=== PATIENT | female | born 1970 | race Caucasian/White ===

== ENCOUNTER 2017-05-31 10:54 | Inpatient (IN) | payer BC ==
[2017-05-31] MEDS ORDERED: Lactated Ringers 1,000 ML IV ONE ×2 (11:34→12:56)
[2017-05-31] MEDS ORDERED: Sodium Chloride 0.9% 10 ML Syringe FLUSH PRN (11:34)
[2017-05-31] MEDS ORDERED: diphenhydrAMINE 50 MG/ML SDV IVPUSH ONE (11:35)
[2017-05-31] MEDS ORDERED: methylPREDNISolone Sodium Succinate 125 MG/2 ML SDV IVPUSH ONE (11:35)
--- NOTE | 2017-05-31 11:52 | EDM.PDOC ---
ED HPI GENERAL MEDICAL PROBLEM - General Chief Complaint: Fever Stated Complaint: FEVER,RASH,BODY ACHES VOMITING Time Seen by Provider: 05/31/17 11:15 Source of Information: Reports: Patient History Limitations: Reports: No Limitations - History of Present Illness INITIAL COMMENTS - FREE TEXT/NARRATIVE: 46-year-old female presents for evaluation and treatment of fevers, rash, nausea , vomiting and body aches. Patient reports one week ago she appreciated abscess to her left shoulder blade. She presented to the walk-in clinic and was referred to surgery. She was able to see Dr. Garrett, [facility], Saturday. Reports that a culture was obtained and she was started on antibiotics. No I&D was performed. Patient states that she was started on Bactrim. She states that afternoon she developed fevers and bodyaches. Reports her temperature has been highest at 102.8. She reports last night she developed nausea and vomiting, right after taking the antibiotic. She is also been experiencing a decreased appetite, dizziness, feeling "foggy", fevers, chills and a "little bit of a cough ". She denies any sore throat, ear pain, abdominal pain, dysuria or any diarrhea. She states that last night she appreciated some redness to her bilateral thighs. When she woke this morning she had erythema and pruritus to her entire body. She states that she had a little bit of a headache the other day but nothing major. Last dose of antibiotic was last night. She took some Tylenol PM last night to help her sleep. No recent travel. Generalized Pain Score (Numeric/FACES): 5 - Related Data Allergies Allergy/AdvReac Type Severity Reaction Status Date / Time latex Allergy Rash Verified 05/31/17 15:38 Sulfa (Sulfonamide Allergy Rash Verified 05/31/17 11:03 Antibiotics) Home Meds: Home Meds Cholecalciferol (Vitamin D3) [Vitamin D3] 2,000 units PO DAILY 05/31/17 [History ] Multivitamin [Multivitamins] 1 each PO DAILY 05/31/17 [History] Sulfamethoxazole/Trimethoprim [Bactrim Ds Tablet] 1 tab PO BID 05/31/17 [History ] Past Medical History - Past Health History Medical/Surgical History: Denies Medical/Surgical History ED ROS GENERAL - Review of Systems Review Of Systems: See Below Constitutional: Reports: Fever, Chills, Malaise, Decreased Appetite HEENT: Denies: Ear Pain, Throat Pain Respiratory: Reports: Cough. Denies: Sputum GI/Abdominal: Reports: Nausea, Vomiting. Denies: Abdominal Pain, Diarrhea : Denies: Dysuria Skin: Reports: Pruritis, Erythema, Lumps Neurological: Reports: Headache ED EXAM, SEPSIS - Physical Exam Exam: See Below Exam Limited By: No Limitations General Appearance: Alert, WD/WN, No Apparent Distress, Obese Eye Exam: Bilateral Eye: Normal Inspection Ears: Normal External Exam Nose: Normal Inspection Throat/Mouth: Normal Inspection, Normal Lips, Normal Voice, No Airway Compromise Neck: Normal Inspection Respiratory/Chest: No Respiratory Distress, Lungs Clear, Normal Breath Sounds Cardiovascular: Normal Peripheral Pulses, Tachycardia, Systolic Murmur (grade 2 systolic heart murmur) Peripheral Pulses: 2+: Radial (L), Radial (R), Posterior Tibial (L), Posterior Tibial (R) GI/Abdominal Exam: Normal Bowel Sounds, Soft, Non-Tender, No Organomegaly Neurological: Alert, Oriented, Normal Cognition Psychiatric: Normal Affect, Normal Mood Skin: Erythema (bilteral legs, arms, trunk and head; no blistering appreciated) , Increased Warmth, Wound/Incision Course - Vital Signs Last Recorded V/S: Last Vital Signs Temp 36.9 C 05/31/17 15:07 Pulse 90 05/31/17 15:07 Resp 16 05/31/17 15:07 BP 93/58 L 05/31/17 15:07 Pulse Ox 92 L 05/31/17 15:07 - Orders/Labs/Meds Orders: Active Orders 24 hr Category Date Time Status Patient Status [ADT] Routine ADT 05/31/17 14:41 Ordered Cardiac Monitoring [RC] . DIRECTED Care 05/31/17 11:35 Active Peripheral IV Care [RC] . DIRECTED Care 05/31/17 11:34 Active CULTURE BLOOD [BC] Stat Lab 05/31/17 11:52 Received CULTURE BLOOD [BC] Stat Lab 05/31/17 12:25 Received CULTURE STREP A CONFIRMATION [RM] Stat Lab 05/31/17 11:53 Results STREP SCRN A RAPID W CULT CONF [RM] Stat Lab 05/31/17 11:53 Results Sodium Chloride 0.9% [Saline Flush] Med 05/31/17 11:34 Active 10 ml FLUSH ASDIRECTED PRN Blood Culture x2 Reflex Set [OM.PC] Stat Oth 05/31/17 11:29 Ordered Peripheral IV Insertion Adult [OM.PC] Routine Oth 05/31/17 11:34 Ordered Medication Orders Sodium Chloride (Saline Flush) 10 ml FLUSH ASDIRECTED PRN PRN Reason: Keep Vein Open Last Admin: 05/31/17 12:06 Dose: 10 ml Labs: Laboratory Tests 05/31/17 05/31/17 05/31/17 Range/Units 10:05 10:05 10:05 WBC 3.79 L (3.98-10.04) K/mm3 RBC 4.83 (3.98-5.22) M/mm3 Hgb 12.3 (11.2-15.7) gm/L Hct 36.9 (34.1-44.9) % MCV 76.4 L (79.4-94.8) fl MCH 25.5 L (25.6-32.2) pg MCHC 33.3 (32.2-35.5) g/dl RDW Std Deviation 40.8 (36.4-46.3) fL Plt Count 189 (182-369) K/mm3 MPV 10.8 (9.4-12.3) fl Neutrophils % (Manual) 38 L (40-60) % Band Neutrophils % 20 H (0-10) % Lymphocytes % (Manual) 30 (20-40) % Atypical Lymphs % 0 % Monocytes % (Manual) 6 (2-10) % Eosinophils % (Manual) 6 H (0.7-5.8) % Basophils % (Manual) 0 L (0.1-1.2) Platelet Estimate Adequate RBC Morph Comment Not Reportable Sodium 130 L (136-145) mEq/L Potassium 3.8 (3.5-5.1) mEq/L Chloride 95 L (98-107) mEq/L Carbon Dioxide 21 (21-32) mEq/L Anion Gap 17.8 H (5-15) BUN 11 (7-18) mg/dL Creatinine 1.2 H (0.55-1.02) mg/dL Est Cr Clr Drug Dosing 51.66 mL/min Estimated GFR (MDRD) 49 (>60) mL/min BUN/Creatinine Ratio 9.2 L (14-18) Glucose 129 H (74-106) mg/dL Lactic Acid (0.4-2.0) mmol/L Calcium 8.2 L (8.5-10.1) mg/dL Total Bilirubin 0.2 (0.2-1.0) mg/dL AST 157 H (15-37) U/L ALT 106 H (14-59) U/L Alkaline Phosphatase 84 (46-116) U/L C-Reactive Protein 3.8 H* (<1.0) mg/dL Total Protein 7.2 (6.4-8.2) g/dl Albumin 3.2 L (3.4-5.0) g/dl Globulin 4.0 gm/dL Albumin/Globulin Ratio 0.8 L (1-2) Urine Color (Yellow) Urine Appearance (Clear) Urine pH (5.0-8.0) Ur Specific [place] (1.005-1.030) Urine Protein (Negative) Urine Glucose (UA) (Negative) Urine Ketones (Negative) Urine Occult Blood (Negative) Urine Nitrite (Negative) Urine Bilirubin (Negative) Urine Urobilinogen (0.2-1.0) Ur Leukocyte Esterase (Negative) Urine RBC (0-5) /hpf Urine WBC (0-5) /hpf Ur Epithelial Cells (0-5) /hpf Urine Bacteria (FEW) /hpf Urine Mucus (FEW) /hpf Urine Opiates Screen (NEGATIVE) Ur Buprenorphine Scrn (NEGATIVE) Ur Oxycodone Screen (NEGATIVE) Urine Methadone Screen (NEGATIVE) Ur Propoxyphene Screen (NEGATIVE) Ur Barbiturates Screen (NEGATIVE) Ur Tricyclics Screen (NEGATIVE) Ur Phencyclidine Scrn (NEGATIVE) Ur Amphetamine Screen (NEGATIVE) U Methamphetamines Scrn (NEGATIVE) U Benzodiazepines Scrn (NEGATIVE) U Cocaine Metab Screen (NEGATIVE) U Marijuana (THC) Screen (NEGATIVE) Ethyl Alcohol 0.00 (0.00) gm% 05/31/17 05/31/17 05/31/17 Range/Units 11:52 13:05 13:05 WBC (3.98-10.04) K/mm3 RBC (3.98-5.22) M/mm3 Hgb (11.2-15.7) gm/L Hct (34.1-44.9) % MCV (79.4-94.8) fl MCH (25.6-32.2) pg MCHC (32.2-35.5) g/dl RDW Std Deviation (36.4-46.3) fL Plt Count (182-369) K/mm3 MPV (9.4-12.3) fl Neutrophils % (Manual) (40-60) % Band Neutrophils % (0-10) % Lymphocytes % (Manual) (20-40) % Atypical Lymphs % % Monocytes % (Manual) (2-10) % Eosinophils % (Manual) (0.7-5.8) % Basophils % (Manual) (0.1-1.2) Platelet Estimate RBC Morph Comment Sodium (136-145) mEq/L Potassium (3.5-5.1) mEq/L Chloride (98-107) mEq/L Carbon Dioxide (21-32) mEq/L Anion Gap (5-15) BUN (7-18) mg/dL Creatinine (0.55-1.02) mg/dL Est Cr Clr Drug Dosing mL/min Estimated GFR (MDRD) (>60) mL/min BUN/Creatinine Ratio (14-18) Glucose (74-106) mg/dL Lactic Acid 1.5 (0.4-2.0) mmol/L Calcium (8.5-10.1) mg/dL Total Bilirubin (0.2-1.0) mg/dL AST (15-37) U/L ALT (14-59) U/L Alkaline Phosphatase (46-116) U/L C-Reactive Protein (<1.0) mg/dL Total Protein (6.4-8.2) g/dl Albumin (3.4-5.0) g/dl Globulin gm/dL Albumin/Globulin Ratio (1-2) Urine Color [place] H (Yellow) Urine Appearance Cloudy H (Clear) Urine pH 5.5 (5.0-8.0) Ur Specific [place] 1.020 (1.005-1.030) Urine Protein 2+ H (Negative) Urine Glucose (UA) Negative (Negative) Urine Ketones Trace H (Negative) Urine Occult Blood 3+ H (Negative) Urine Nitrite Negative (Negative) Urine Bilirubin Negative (Negative) Urine Urobilinogen 0.2 (0.2-1.0) Ur Leukocyte Esterase Negative (Negative) Urine RBC 40-50 H (0-5) /hpf Urine WBC 0-5 (0-5) /hpf Ur Epithelial Cells 0-5 (0-5) /hpf Urine Bacteria Few (FEW) /hpf Urine Mucus Not seen (FEW) /hpf Urine Opiates Screen Negative (NEGATIVE) Ur Buprenorphine Scrn Negative (NEGATIVE) Ur Oxycodone Screen Negative (NEGATIVE) Urine Methadone Screen Negative (NEGATIVE) Ur Propoxyphene Screen Negative (NEGATIVE) Ur Barbiturates Screen Negative (NEGATIVE) Ur Tricyclics Screen Negative (NEGATIVE) Ur Phencyclidine Scrn Negative (NEGATIVE) Ur Amphetamine Screen Negative (NEGATIVE) U Methamphetamines Scrn Negative (NEGATIVE) U Benzodiazepines Scrn Negative (NEGATIVE) U Cocaine Metab Screen Negative (NEGATIVE) U Marijuana (THC) Screen Presumptive positive H (NEGATIVE) Ethyl Alcohol (0.00) gm% Meds: Medications Generic Name Dose Route Start Last Admin Trade Name Freq PRN Reason Stop Dose Admin Sodium Chloride 10 ml 05/31/17 11:34 05/31/17 12:06 Saline Flush FLUSH 10 ml ASDIRECTED PRN Administration Keep Vein Open Discontinued Medications Generic Name Dose Route Start Last Admin Trade Name Freq PRN Reason Stop Dose Admin Acetaminophen 975 mg 05/31/17 14:24 05/31/17 14:40 Tylenol PO 05/31/17 14:25 975 mg NOW ONE Administration Diphenhydramine HCl 50 mg 05/31/17 11:35 05/31/17 12:05 Benadryl IVPUSH 05/31/17 11:36 50 mg ONETIME ONE Administration Lactated Ringer's 1,000 mls @ 999 mls/hr 05/31/17 11:34 05/31/17 11:57 Ringers, Lactated IV 05/31/17 12:34 999 mls/hr .BOLUS ONE Administration Lactated Ringer's 1,000 mls @ 999 mls/hr 05/31/17 12:56 05/31/17 13:24 Ringers, Lactated IV 05/31/17 13:56 999 mls/hr .BOLUS ONE Administration Clindamycin Phosphate 600 mg/ 104 mls @ 100 mls/hr 05/31/17 13:31 05/31/17 13 :51 Sodium Chloride IV 05/31/17 14:33 100 mls/hr ONETIME ONE Administration Methylprednisolone Sodium Succinate 125 mg 05/31/17 11:35 05/31/17 11:58 Solu-Medrol IVPUSH 05/31/17 11:36 125 mg ONETIME ONE Administration Pneumococcal Polyvalent Vaccine 0.5 ml 05/31/17 15:28 Pneumovax 23 IM 05/31/17 15:29 .ONCE ONE - Radiology Interpretation Free Text/Narrative:: Chest: Two views of the chest were obtained. Comparison: No prior chest x-ray. Heart size and mediastinum are normal. Lungs are clear. Bony structures are unremarkable for the patient's age. Impression: 1. Nothing acute is seen on two-view chest x-ray. - Re-Assessments/Exams Free Text/Narrative Re-Assessment/Exam: 05/31/17 12:00 Note was obtained from [facility]. Culture grew out Staphylococcus aureus, sensitive to clindamycin, erythromycin, oxacillin, rifampin, tetracycline, Bactrim and doxycycline. Review of the records show that she was indeed started on Bactrim double strength 1 tab twice a day for 10 days. Bactrim was started on Saturday. She was instructed to follow up with surgery on Saturday. 05/31/17 14:30 I reviewed the labs and imaging with the patient. Plan will be to admit for fever, hypotension and adverse drug reaction. Rule out sepsis. Blood cultures are pending. Discussed the case with Dr. Gtz, hospitalist hand stoner. She agrees to the admission. The patient will be admitted to med/surg with tele. Departure - Departure Time of Disposition: 14:36 Disposition: Admitted As Inpatient 68 Condition: Fair Clinical Impression: Hypotension, Elevated transaminase level, Adverse reaction to antibiotic, Fever - Discharge Information Referrals: PCP,None [Primary Care Provider] - Forms: ED Department Discharge Additional Instructions: Patient to be admitted to med/surg with tele under Dr. Gtz. - My Orders Last 24 Hours: My Active Orders 05/31/17 11:29 Blood Culture x2 Reflex Set [OM.PC] Stat 05/31/17 11:34 Peripheral IV Care [RC] . DIRECTED Sodium Chloride 0.9% [Saline Flush] 10 ml FLUSH ASDIRECTED PRN Peripheral IV Insertion Adult [OM.PC] Routine 05/31/17 11:35 Cardiac Monitoring [RC] . DIRECTED 05/31/17 11:52 CULTURE BLOOD [BC] Stat 05/31/17 11:53 CULTURE STREP A CONFIRMATION [RM] Stat STREP SCRN A RAPID W CULT CONF [RM] Stat 05/31/17 12:25 CULTURE BLOOD [BC] Stat 05/31/17 14:41 Patient Status [ADT] Routine - Assessment/Plan Last 24 Hours: My Active Orders 05/31/17 11:29 Blood Culture x2 Reflex Set [OM.PC] Stat 05/31/17 11:34 Peripheral IV Care [RC] . DIRECTED Sodium Chloride 0.9% [Saline Flush] 10 ml FLUSH ASDIRECTED PRN Peripheral IV Insertion Adult [OM.PC] Routine 05/31/17 11:35 Cardiac Monitoring [RC] . DIRECTED 05/31/17 11:52 CULTURE BLOOD [BC] Stat 05/31/17 11:53 CULTURE STREP A CONFIRMATION [RM] Stat STREP SCRN A RAPID W CULT CONF [RM] Stat 05/31/17 12:25 CULTURE BLOOD [BC] Stat 05/31/17 14:41 Patient Status [ADT] Routine
--- NOTE | 2017-05-31 13:05 | CR ---
Chest: Two views of the chest were obtained. Comparison: No prior chest x-ray. Heart size and mediastinum are normal. Lungs are clear. Bony structures are unremarkable for the patient's age. Impression: 1. Nothing acute is seen on two-view chest x-ray. Diagnostic code #1
[2017-05-31] MEDS ORDERED: Clindamycin Phosphate 600 MG in Sodium Chloride 0.9% 100 ML IV ONE (13:31)
[2017-05-31] MEDS ORDERED: Acetaminophen 325 MG Tab PO ONE (14:24)
--- NOTE | 2017-05-31 14:59 | PCM.HP ---
H&P History of Present Illness - General Date of Service: 05/31/17 Admit Problem/Dx: Admission Diagnosis/Problem Admission Diagnosis/Problem Allergic reaction to drug Source of Information: Patient, Provider, RN, RN Notes Reviewed History Limitations: Reports: No Limitations - History of Present Illness Initial Comments - Free Text/Narative: Eleanor Swain is a 46 yo female who presents to our ED today (05/31/17) with fever , rash, body aches, and vomiting. She reportedly had a abscess on her left shoulder blade 1 week ago and went to the [facility] walk-in. She is an referred to surgery and a locum surgeon at [place], Dr. Garrett, evaluated her this past Saturday. Patient states the wound was already draining so it was elected to allow to drain and she was started on Bactrim antibiotics. That afternoon she began having fever and body aches, with a temperature as high as 102.8. The night prior to coming to the ED she developed nausea and vomiting immediately after taking her antibiotic. She also reports a decreased appetite, dizziness, feeling "foggy," fevers, chills, and a very mild cough. She denies any sore throat, ear pain, abdominal pain, dysuria, or diarrhea. She reports a last night she did have some redness to her bilateral thighs. When she woke in the morning she had erythema and pruritus to the entire body. She reports a little bit of a headache the other day but nothing severe. Her last dose of antibiotic was the night of the . She did take some Tylenol PM the night before to help her sleep. On arrival to the ED temp was 30.7 Celsius. Pulse 104. Respirations 18. Blood pressure 111/69. Pulse ox 97%. Labs are obtained: WBCs are low at 3.79. Hemoglobin 12.3. Hematocrit 36.9. She is at the very bottom of normocytic at 76.4. Further 189,000. Neutrophils are low at 30%. There is 20% band neutrophils noted. Sodium is low 1:30. Potassium 3.8. Chloride is low at 95. Carbon dioxide 21. Anion gap is quite high at 17.8. BUN is 11. Creatinine is elevated at 1.2. EGFR is 49. Glucose is high at 129. Lactic acid 1.5. Calcium 8.2. Total bilirubin 0.2. AST is high at 157, ALT high at 106, alkaline phosphatase is 84. CRP is 3.8. Albumin is 3.2. UA is negative however 2+ protein, trace ketones, 3+ occult blood, and 40-50 RBCs are noted. In the ED she is given Tylenol, Benadryl, to 1 L boluses of lactated Ringer's, 125 mg IVP of Solu-Medrol, and she started on clindamycin 600 mg. 2 view chest x-rays obtained and nothing acute is identified. UDS was presumptive positive for marijuana. ETOH was 0.00. They obtained of the cultures from [place] for her wound and as noted she rule out staph aureus sensitive to clindamycin, along with a few other meds. She was started on Bactrim double strength 1 tab twice a day for 10 days. This was started on Saturday. She was also instructed to follow-up with surgery on Saturday. In the ED she was noted to have pruritic and erythematous skin. She was not having any respiratory difficulty. She denies any past medical or surgical history. She is not a smoker. She is subsequently admitted to the medical floor on telemetry. She is a full code. She does not have a PCP currently however she would like to establish with Dr. Martines at [facility]. Generalized Pain Score (Numeric/FACES): 0 - Related Data Allergies/Adverse Reactions: Allergies Allergy/AdvReac Type Severity Reaction Status Date / Time latex Allergy Rash Verified 05/31/17 15:38 Sulfa (Sulfonamide Allergy Rash Verified 05/31/17 11:03 Antibiotics) Home Medications: Home Meds Cholecalciferol (Vitamin D3) [Vitamin D3] 2,000 units PO DAILY 05/31/17 [History ] Multivitamin [Multivitamins] 1 each PO DAILY 05/31/17 [History] Sulfamethoxazole/Trimethoprim [Bactrim Ds Tablet] 1 tab PO BID 05/31/17 [History ] Past Medical History - Past Health History Medical/Surgical History: Denies Medical/Surgical History Social & Family History - Tobacco Use Smoking Status *Q: Never Smoker H&P Review of Systems - Review of Systems: Review Of Systems: See Below General: Reports: Fever (eariler in day ), Chills, Malaise, Weakness, Fatigue, Decreased Appetite HEENT: Reports: No Symptoms. Denies: Ear Pain, Eye Pain, Headaches, Rhinitis, Sore Throat Pulmonary: Reports: Cough (occasional ). Denies: Shortness of Breath, Wheezing , Pleuritic Chest Pain, Sputum, Hemoptysis Cardiovascular: Reports: No Symptoms. Denies: Chest Pain, Palpitations, Dyspnea on Exertion, Edema, Lightheadedness, Blood Pressure Problem Gastrointestinal: Reports: Nausea (earlier), Vomiting (earlier ). Denies: Abdominal Pain, Constipation, Diarrhea, Difficulty Swallowing Genitourinary: Reports: No Symptoms, Other (poor oral intake ). Denies: Dysuria , Frequency, Burning, Pain Musculoskeletal: Reports: No Symptoms Skin: Reports: Pruritis, Rash, Erythema Psychiatric: Reports: No Symptoms Neurological: Reports: Headache (earlier ), Weakness. Denies: Confusion, Dizziness, Numbness, Pre-Existing Deficit, Tingling, Trouble Speaking, Difficulty Walking, Gait Disturbance Hematologic/Lymphatic: Reports: No Symptoms Immunologic: Reports: No Symptoms Exam - Exam Exam: See Below - Vital Signs Vital Signs: Last Vital Signs Temp 101.8 F H 05/31/17 14:40 Pulse 104 H 05/31/17 11:03 Resp 18 05/31/17 11:03 BP 111/69 05/31/17 11:03 Pulse Ox 97 05/31/17 11:03 Weight: 205 lb - Exam General: Alert, Oriented, Cooperative. No: Mild Distress HEENT: Conjunctiva Clear, EACs Clear, EOMI, Hearing Intact, Nares Patent, Normal Nasal Septum, Posterior Pharynx Clear, TMs Clear, Other (dry oral mucosa ), PERRLA. No: Mucosa Moist & Thoreau Neck: Supple, Trachea Midline Lungs: Clear to Auscultation, Normal Respiratory Effort. No: Rhonchi, Wheezing Cardiovascular: Regular Rate, Regular Rhythm GI/Abdominal Exam: Normal Bowel Sounds, Soft, Non-Tender, No Organomegaly, No Distention, No Abnormal Bruit, No Mass, Pelvis Stable (Female) Exam: Deferred Rectal (Female) Exam: Deferred Back Exam: Normal Inspection, Full Range of Motion, Other (small approximately 3cm wound on left scapular region that is red and appears to be healing. No drainage.) Extremities: Normal Inspection, Normal Range of Motion, Non-Tender, No Pedal Edema, Normal Capillary Refill Peripheral Pulses: 2+: Radial (L), Radial (R), Posterior Tibial (L), Posterior Tibial (R), Dorsalis Pedis (L), Dorsalis Pedis (R) Skin: Warm, Dry, Intact, Wound Neurological: Cranial Nerves Intact (grossly ) Neuro Extensive - Mental Status: Alert, Oriented x3, Normal Mood/Affect, Normal Cognition, Memory Intact Psychiatric: Alert, Normal Affect, Normal Mood - Patient Data Result Diagrams: 05/31/17 10:05 05/31/17 10:05 *Q Meaningful Use (ADM) - VTE *Q VTE Criteria *Q: - Stroke *Q Stroke Criteria *Q: - AMI *Q AMI Criteria *Q: - Problem List (1) Adverse reaction to antibiotic SNOMED Code(s): 899510987 ICD Code: T36.95XA - ADVERSE EFFECT OF UNSP SYSTEMIC ANTIBIOTIC, INIT ENCNTR Status: Acute Priority: High Current Visit: Yes Qualifiers: Encounter type: initial encounter Qualified Code(s): T36.95XA - Adverse effect of unspecified systemic antibiotic, initial encounter (2) Fever SNOMED Code(s): 870990887 ICD Code: R50.9 - FEVER, UNSPECIFIED Status: Acute Priority: High Current Visit: Yes Qualifiers: Fever type: unspecified Qualified Code(s): R50.9 - Fever, unspecified (3) Elevated transaminase level SNOMED Code(s): 964952777 ICD Code: R74.0 - NONSPEC ELEV OF LEVELS OF TRANSAMNS & LACTIC ACID DEHYDRGNSE Status: Acute Priority: Medium Current Visit: Yes (4) Dehydration SNOMED Code(s): 01659742 ICD Code: E86.0 - DEHYDRATION Status: Acute Priority: High Current Visit: Yes (5) Hypotension SNOMED Code(s): 24049662 ICD Code: I95.9 - HYPOTENSION, UNSPECIFIED Status: Acute Priority: High Current Visit: Yes Qualifiers: Hypotension type: unspecified hypotension type Qualified Code(s): I95.9 - Hypotension, unspecified (6) Hyponatremia SNOMED Code(s): 61421377 ICD Code: E87.1 - HYPO-OSMOLALITY AND HYPONATREMIA Status: Acute Priority : High Current Visit: Yes Problem List Initiated/Reviewed/Updated: Yes Orders Last 24hrs: Medication Orders Sodium Chloride (Saline Flush) 10 ml FLUSH ASDIRECTED PRN PRN Reason: Keep Vein Open Last Admin: 05/31/17 12:06 Dose: 10 ml Assessment/Plan Comment:: I/P: Acute: Allergic reaction -Started on Bactrim last Saturday -Has since reported fever, generalized rash, body aches, vomiting, nausea, chills, dizziness -Bactrim half life 8-10 hours -Benadryl, steroid given in ED -Continue Solu-medrol -IV fluids -Supportive care -Discontinue Bactrim -Rash improving by time she gets to floor -Other symptoms resolved by exam Dehydration -Reports poor oral intake over last several days 2/2 above -Anion gap 17.8 -Creatinine elevated (1.2) -Dry oral mucosa on exam -Push oral hydration -2L LR bolus given in ED -IV fluids as ordered Hypotension -2L fluid bolus given in ED -IV fluids as ordered -Monitor Hyponatremia -Likely 2/2 poor oral intake -IV fluids -Monitor Elevated transaminases -AST 157, ALT 106, Alkaline phosphatase 84 -Denies abdominal pain or frequent ETOH use -May be 2/2 to above -Monitor Abscess -Left scapular region approx 3 cm long -Was draining at [facility] when seen by surgery -No drainage now, dry and hard to touch -Culture grew out 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 Martines at [facility] Code Status: Full code
[2017-05-31] MEDS ORDERED: Pneumococcal Polyvalent-23 Vaccine 0.5 ML SDV IM ONE (15:28)
[2017-05-31] MEDS ORDERED: Ondansetron 4 MG Tab.DIS PO PRN (16:44)
[2017-05-31] MEDS ORDERED: Albuterol/Ipratropium 3.0-0.5 MG/3 ML Neb Soln NEB PRN (16:44)
[2017-05-31] MEDS ORDERED: Ondansetron 4 MG/2 ML SDV IV PRN (16:44)
[2017-05-31] MEDS ORDERED: Acetaminophen 325 MG Tab PO PRN (16:44)
[2017-05-31] MEDS ORDERED: Acetaminophen/HYDROcodone 325-5 MG Tab PO PRN (16:44)
[2017-05-31] MEDS ORDERED: hydrALAZINE 20 MG/ML SDV IVPUSH PRN (16:49)
[2017-05-31] MEDS ORDERED: Metoprolol Tartrate 5 MG/5 ML SDV IVPUSH PRN (16:49)
[2017-05-31] MEDS: Sodium Chloride 0.9% 1,000 ML IV SCH (17:11)
[2017-05-31] MEDS: methylPREDNISolone Sodium Succinate 125 MG/2 ML SDV IVPUSH SCH ×2 (21:44→21:57)
[2017-05-31] MEDS: Clindamycin Phosphate 600 MG in Sodium Chloride 0.9% 100 ML IV SCH (21:58)
[2017-05-31] MEDS ORDERED: Clindamycin Phosphate 600 MG in Sodium Chloride 0.9% 100 ML IV SCH (22:00)
[2017-06-01] MEDS: Clindamycin Phosphate 600 MG in Sodium Chloride 0.9% 100 ML IV SCH ×4 (02:55→21:07)
[2017-06-01] MEDS: Sodium Chloride 0.9% 1,000 ML IV SCH ×2 (02:59→14:07)
[2017-06-01] MEDS: Saccharomyces Boulardii (Probiotic) 250 MG Cap PO SCH (08:40)
[2017-06-01] MEDS: methylPREDNISolone Sodium Succinate 40 MG/1 ML SDV IVPUSH SCH ×2 (08:40→21:07)
--- NOTE | 2017-06-01 13:33 | PCM.PN ---
- General Info Date of Service: 06/01/17 Functional Status: Reports: Tolerating Diet, Ambulating, Urinating - Review of Systems General: Reports: No Symptoms HEENT: Reports: No Symptoms Pulmonary: Reports: No Symptoms Cardiovascular: Reports: No Symptoms Gastrointestinal: Reports: No Symptoms Genitourinary: Reports: No Symptoms Musculoskeletal: Reports: No Symptoms Skin: Reports: No Symptoms Neurological: Reports: No Symptoms Psychiatric: Reports: No Symptoms - Patient Data Vitals - Most Recent: Last Vital Signs Temp 37.0 C 06/01/17 11:34 Pulse 83 06/01/17 11:34 Resp 17 06/01/17 11:34 BP 108/61 06/01/17 11:34 Pulse Ox 92 L 06/01/17 11:34 Weight - Most Recent: 93.894 kg I&O - Last 24 Hours: Intake & Output 05/31/17 06/01/17 06/01/17 22:59 06:59 14:59 Intake Total 120 2179 120 Output Total 1550 Balance 120 629 120 Lab Results Last 24 Hours: Laboratory Results - last 24 hr 06/01/17 06/01/17 Range/Units 04:54 04:54 WBC 2.01 L* (3.98-10.04) K/mm3 RBC 4.72 (3.98-5.22) M/mm3 Hgb 11.6 (11.2-15.7) gm/L Hct 36.3 (34.1-44.9) % MCV 76.9 L (79.4-94.8) fl MCH 24.6 L (25.6-32.2) pg MCHC 32.0 L (32.2-35.5) g/dl RDW Std Deviation 41.5 (36.4-46.3) fL Plt Count 161 L (182-369) K/mm3 MPV 11.2 (9.4-12.3) fl Neut % (Auto) 55.2 (34.0-71.1) % Lymph % (Auto) 38.8 (19.3-51.7) % Lamb % (Auto) 4.5 L (4.7-12.5) % Eos % (Auto) 0.5 L (0.7-5.8) Baso % (Auto) 0.5 (0.1-1.2) % Neut # (Auto) 1.11 L (1.56-6.13) K/mm3 Lymph # (Auto) 0.78 L (1.18-3.74) K/mm3 Lamb # (Auto) 0.09 L (0.24-0.36) K/mm3 Eos # (Auto) 0.01 L (0.04-0.36) K/mm3 Baso # (Auto) 0.01 (0.01-0.08) K/mm3 Manual Slide Review Abnormal smear Sodium 135 L (136-145) mEq/L Potassium 4.4 (3.5-5.1) mEq/L Chloride 102 (98-107) mEq/L Carbon Dioxide 23 (21-32) mEq/L Anion Gap 14.4 (5-15) BUN 11 (7-18) mg/dL Creatinine 0.9 (0.55-1.02) mg/dL Est Cr Clr Drug Dosing 71.78 mL/min Estimated GFR (MDRD) > 60 (>60) mL/min BUN/Creatinine Ratio 12.2 L (14-18) Glucose 214 H (74-106) mg/dL Calcium 8.2 L (8.5-10.1) mg/dL Magnesium 1.8 (1.8-2.4) mg/dl C-Reactive Protein 3.1 H* (<1.0) mg/dL Med Orders - Current: Current Medications Acetaminophen (Tylenol) 650 mg PO Q4H PRN PRN Reason: Pain (Mild 1-3)/fever Hydrocodone Bitart/Acetaminophen ([place] 325-5 Mg) 1 tab PO Q4H PRN PRN Reason: Pain (moderate 4-6) Albuterol/Ipratropium (Duoneb 3.0-0.5 Mg/3 Ml) 3 ml NEB Q4H PRN PRN Reason: Shortness Of Breath/wheezing Hydralazine HCl (Apresoline) 10 mg IVPUSH Q6H PRN PRN Reason: Hypertension Sodium Chloride (Normal Saline) 1,000 mls @ 100 mls/hr IV ASDIRECTED [facility] Last Admin: 06/01/17 02:59 Dose: 100 mls/hr Clindamycin Phosphate 600 mg/ (Sodium Chloride) 104 mls @ 100 mls/hr IV Q6H [facility] Last Admin: 06/01/17 08:40 Dose: 100 mls/hr Methylprednisolone Sodium Succinate (Solu-Medrol) 60 mg IVPUSH Q12H [facility] Last Admin: 06/01/17 08:40 Dose: 60 mg Metoprolol Tartrate (Lopressor) 5 mg IVPUSH Q4H PRN PRN Reason: Tachycardia Ondansetron HCl (Zofran Odt) 4 mg PO Q6H PRN PRN Reason: nausea, able to take PO Ondansetron HCl (Zofran) 4 mg IV Q6H PRN PRN Reason: Nausea/Vomiting Saccharomyces Boulardii (Florastor) 500 mg PO DAILY [facility] Last Admin: 06/01/17 08:40 Dose: 500 mg Sodium Chloride (Saline Flush) 10 ml FLUSH ASDIRECTED PRN PRN Reason: Keep Vein Open Last Admin: 05/31/17 12:06 Dose: 10 ml Discontinued Medications Acetaminophen (Tylenol) 975 mg PO NOW ONE Stop: 05/31/17 14:25 Last Admin: 05/31/17 14:40 Dose: 975 mg Diphenhydramine HCl (Benadryl) 50 mg IVPUSH ONETIME ONE Stop: 05/31/17 11:36 Last Admin: 05/31/17 12:05 Dose: 50 mg Lactated Ringer's (Ringers, Lactated) 1,000 mls @ 999 mls/hr IV .BOLUS ONE Stop: 05/31/17 12:34 Last Admin: 05/31/17 11:57 Dose: 999 mls/hr Lactated Ringer's (Ringers, Lactated) 1,000 mls @ 999 mls/hr IV .BOLUS ONE Stop: 05/31/17 13:56 Last Admin: 05/31/17 13:24 Dose: 999 mls/hr Clindamycin Phosphate 600 mg/ (Sodium Chloride) 104 mls @ 100 mls/hr IV ONETIME ONE Stop: 05/31/17 14:33 Last Admin: 05/31/17 13:51 Dose: 100 mls/hr Clindamycin Phosphate 600 mg/ (Sodium Chloride) 104 mls @ 100 mls/hr IV Q8H [facility] Methylprednisolone Sodium Succinate (Solu-Medrol) 125 mg IVPUSH ONETIME ONE Stop: 05/31/17 11:36 Last Admin: 05/31/17 11:58 Dose: 125 mg Methylprednisolone Sodium Succinate (Solu-Medrol) 60 mg IVPUSH Q12H [facility] Last Admin: 05/31/17 21:57 Dose: 60 mg Pneumococcal Polyvalent Vaccine (Pneumovax 23) 0.5 ml IM .ONCE ONE Stop: 05/31/17 15:29 - Exam Quality Assessment: DVT Prophylaxis General: Alert, Oriented, Cooperative, No Acute Distress HEENT: Pupils Equal, Pupils Reactive, EOMI Neck: Trachea Midline, No JVD Lungs: Normal Respiratory Effort Cardiovascular: Regular Rate, Regular Rhythm GI/Abdominal Exam: Normal Bowel Sounds, Soft, Non-Tender, No Organomegaly, No Distention (Female) Exam: Deferred Back Exam: Normal Inspection Extremities: Normal Inspection, Normal Range of Motion, Non-Tender, No Pedal Edema Skin: Warm Neurological: No New Focal Deficit Psy/Mental Status: Alert, Normal Affect, Normal Mood - Problem List Review Problem List Initiated/Reviewed/Updated: Yes - Plan Plan:: I/P: Acute: Allergic reaction -Started on Bactrim last Saturday -Has since reported fever, generalized rash, body aches, vomiting, nausea, chills, dizziness -Bactrim half life 8-10 hours -Benadryl, steroid given in ED -Continue Solu-medrol -IV fluids -Supportive care -Discontinue Bactrim -Rash improving by time she gets to floor -Other symptoms resolved by exam Dehydration -Reports poor oral intake over last several days 2/2 above -Anion gap 17.8 -Creatinine elevated (1.2) -Dry oral mucosa on exam -Push oral hydration -2L LR bolus given in ED -IV fluids as ordered Hypotension -2L fluid bolus given in ED -IV fluids as ordered -Monitor Hyponatremia -Likely 2/2 poor oral intake -IV fluids -Monitor Elevated transaminases -AST 157, ALT 106, Alkaline phosphatase 84 -Denies abdominal pain or frequent ETOH use -May be 2/2 to above -Monitor Abscess -Left scapular region approx 3 cm long -Was draining at [place] when seen by surgery -No drainage now, dry and hard to touch -Culture grew out 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 Martines at [facility] 24-48 hours Code Status: Full code
[2017-06-01] MEDS: Temazepam 15 MG Cap PO PRN (22:26)
[2017-06-02] MEDS: Sodium Chloride 0.9% 1,000 ML IV SCH (00:05)
[2017-06-02] MEDS: Clindamycin Phosphate 600 MG in Sodium Chloride 0.9% 100 ML IV SCH ×4 (03:58→20:22)
[2017-06-02] MEDS: methylPREDNISolone Sodium Succinate 40 MG/1 ML SDV IVPUSH SCH (08:48)
[2017-06-02] MEDS: Saccharomyces Boulardii (Probiotic) 250 MG Cap PO SCH (08:49)
[2017-06-02] MEDS ORDERED: Magnesium Sulfate/Water 2 GM in Premix Bag 1 BAG IV ONE (10:03)
--- NOTE | 2017-06-02 13:44 | PCM.PN ---
- General Info Date of Service: 06/02/17 Functional Status: Reports: Tolerating Diet, Ambulating, Urinating - Review of Systems General: Reports: No Symptoms HEENT: Reports: No Symptoms Pulmonary: Reports: No Symptoms Cardiovascular: Reports: No Symptoms Gastrointestinal: Reports: No Symptoms Genitourinary: Reports: No Symptoms Musculoskeletal: Reports: No Symptoms Skin: Reports: No Symptoms Neurological: Reports: No Symptoms Psychiatric: Reports: No Symptoms - Patient Data Vitals - Most Recent: Last Vital Signs Temp 36.2 C 06/02/17 11:20 Pulse 81 06/02/17 11:20 Resp 22 H 06/02/17 11:20 BP 133/79 06/02/17 11:20 Pulse Ox 93 L 06/02/17 11:20 Weight - Most Recent: 94.801 kg I&O - Last 24 Hours: Intake & Output 06/01/17 06/02/17 06/02/17 22:59 06:59 14:59 Intake Total 3260 2160 240 Output Total 1200 1400 Balance 2060 760 240 Lab Results Last 24 Hours: Laboratory Results - last 24 hr 06/02/17 06/02/17 Range/Units 05:00 05:00 WBC 5.38 (3.98-10.04) K/mm3 RBC 4.19 (3.98-5.22) M/mm3 Hgb 10.6 L (11.2-15.7) gm/L Hct 32.5 L (34.1-44.9) % MCV 77.6 L (79.4-94.8) fl MCH 25.3 L (25.6-32.2) pg MCHC 32.6 (32.2-35.5) g/dl RDW Std Deviation 42.0 (36.4-46.3) fL Plt Count 166 L (182-369) K/mm3 MPV 11.1 (9.4-12.3) fl Neut % (Auto) 68.4 (34.0-71.1) % Lymph % (Auto) 24.2 (19.3-51.7) % [place] % (Auto) 6.3 (4.7-12.5) % Eos % (Auto) 0.2 L (0.7-5.8) Baso % (Auto) 0.2 (0.1-1.2) % Neut # (Auto) 3.68 (1.56-6.13) K/mm3 Lymph # (Auto) 1.30 (1.18-3.74) K/mm3 Owen # (Auto) 0.34 (0.24-0.36) K/mm3 Eos # (Auto) 0.01 L (0.04-0.36) K/mm3 Baso # (Auto) 0.01 (0.01-0.08) K/mm3 Sodium 138 (136-145) mEq/L Potassium 4.3 (3.5-5.1) mEq/L Chloride 106 (98-107) mEq/L Carbon Dioxide 22 (21-32) mEq/L Anion Gap 14.3 (5-15) BUN 10 (7-18) mg/dL Creatinine 0.7 (0.55-1.02) mg/dL Est Cr Clr Drug Dosing 92.29 mL/min Estimated GFR (MDRD) > 60 (>60) mL/min BUN/Creatinine Ratio 14.3 (14-18) Glucose 184 H (74-106) mg/dL Calcium 8.4 L (8.5-10.1) mg/dL Magnesium 1.8 (1.8-2.4) mg/dl C-Reactive Protein 1.4 H* (<1.0) mg/dL Med Orders - Current: Current Medications Acetaminophen (Tylenol) 650 mg PO Q4H PRN PRN Reason: Pain (Mild 1-3)/fever Hydrocodone Bitart/Acetaminophen ([place] 325-5 Mg) 1 tab PO Q4H PRN PRN Reason: Pain (moderate 4-6) Albuterol/Ipratropium (Duoneb 3.0-0.5 Mg/3 Ml) 3 ml NEB Q4H PRN PRN Reason: Shortness Of Breath/wheezing Hydralazine HCl (Apresoline) 10 mg IVPUSH Q6H PRN PRN Reason: Hypertension Clindamycin Phosphate 600 mg/ (Sodium Chloride) 104 mls @ 100 mls/hr IV Q6H [facility] Last Admin: 06/02/17 08:49 Dose: 100 mls/hr Methylprednisolone Sodium Succinate (Solu-Medrol) 40 mg IVPUSH Q12H [facility] Metoprolol Tartrate (Lopressor) 5 mg IVPUSH Q4H PRN PRN Reason: Tachycardia Ondansetron HCl (Zofran Odt) 4 mg PO Q6H PRN PRN Reason: nausea, able to take PO Ondansetron HCl (Zofran) 4 mg IV Q6H PRN PRN Reason: Nausea/Vomiting Saccharomyces Boulardii (Florastor) 500 mg PO DAILY [facility] Last Admin: 06/02/17 08:49 Dose: 500 mg Sodium Chloride (Saline Flush) 10 ml FLUSH ASDIRECTED PRN PRN Reason: Keep Vein Open Last Admin: 05/31/17 12:06 Dose: 10 ml Temazepam (Restoril) 15 mg PO BEDTIME PRN PRN Reason: Insomnia Last Admin: 06/01/17 22:26 Dose: 15 mg Discontinued Medications Acetaminophen (Tylenol) 975 mg PO NOW ONE Stop: 05/31/17 14:25 Last Admin: 05/31/17 14:40 Dose: 975 mg Diphenhydramine HCl (Benadryl) 50 mg IVPUSH ONETIME ONE Stop: 05/31/17 11:36 Last Admin: 05/31/17 12:05 Dose: 50 mg Lactated Ringer's (Ringers, Lactated) 1,000 mls @ 999 mls/hr IV .BOLUS ONE Stop: 05/31/17 12:34 Last Admin: 05/31/17 11:57 Dose: 999 mls/hr Lactated Ringer's (Ringers, Lactated) 1,000 mls @ 999 mls/hr IV .BOLUS ONE Stop: 05/31/17 13:56 Last Admin: 05/31/17 13:24 Dose: 999 mls/hr Clindamycin Phosphate 600 mg/ (Sodium Chloride) 104 mls @ 100 mls/hr IV ONETIME ONE Stop: 05/31/17 14:33 Last Admin: 05/31/17 13:51 Dose: 100 mls/hr Sodium Chloride (Normal Saline) 1,000 mls @ 100 mls/hr IV ASDIRECTED [facility] Last Admin: 06/02/17 00:05 Dose: 100 mls/hr Clindamycin Phosphate 600 mg/ (Sodium Chloride) 104 mls @ 100 mls/hr IV Q8H [facility] Magnesium Sulfate 2 gm/ Premix 50 mls @ 25 mls/hr IV ONETIME ONE Stop: 06/02/17 12:02 Last Admin: 06/02/17 11:25 Dose: 25 mls/hr Methylprednisolone Sodium Succinate (Solu-Medrol) 125 mg IVPUSH ONETIME ONE Stop: 05/31/17 11:36 Last Admin: 05/31/17 11:58 Dose: 125 mg Methylprednisolone Sodium Succinate (Solu-Medrol) 60 mg IVPUSH Q12H [facility] Last Admin: 05/31/17 21:57 Dose: 60 mg Methylprednisolone Sodium Succinate (Solu-Medrol) 60 mg IVPUSH Q12H [facility] Last Admin: 06/02/17 08:48 Dose: 60 mg Pneumococcal Polyvalent Vaccine (Pneumovax 23) 0.5 ml IM .ONCE ONE Stop: 05/31/17 15:29 - Exam Quality Assessment: DVT Prophylaxis General: Alert, Oriented, Cooperative, No Acute Distress HEENT: Pupils Equal, Pupils Reactive, EOMI Neck: Supple, Trachea Midline, No JVD Lungs: Clear to Auscultation, Normal Respiratory Effort Cardiovascular: Regular Rate, Regular Rhythm GI/Abdominal Exam: Normal Bowel Sounds, Soft, Non-Tender, No Organomegaly, No Distention (Female) Exam: Deferred Back Exam: Normal Inspection Extremities: Normal Inspection, Normal Range of Motion, Non-Tender, Normal Capillary Refill, Pedal Edema (trace) Skin: Warm Neurological: No New Focal Deficit, Normal Gait, Normal Speech Psy/Mental Status: Alert, Normal Affect, Normal Mood - Problem List Review Problem List Initiated/Reviewed/Updated: Yes - My Orders Last 24 Hours: My Active Orders 06/01/17 22:19 Temazepam [Restoril] 15 mg PO BEDTIME PRN 06/02/17 21:00 methylPREDNISolone Sod Succ [Solu-MEDROL] 40 mg IVPUSH Q12H - Plan Plan:: I/P: Acute: Allergic reaction -Started on Bactrim last Saturday -Has since reported fever, generalized rash, body aches, vomiting, nausea, chills, dizziness -Bactrim half life 8-10 hours -Benadryl, steroid given in ED -Continue Solu-medrol, taper; change to prednisone 06/03/17 -IV fluids -Supportive care -Discontinue Bactrim -Rash improving by time she gets to floor -Other symptoms resolved by exam Dehydration -Reports poor oral intake over last several days 2/2 above -Anion gap 17.8 -Creatinine elevated (1.2) -Dry oral mucosa on exam -Push oral hydration -2L LR bolus given in ED -IV fluids as ordered Hypotension -2L fluid bolus given in ED -IV fluids as ordered -Monitor Hyponatremia -Likely 2/2 poor oral intake -IV fluids -Monitor Elevated transaminases -AST 157, ALT 106, Alkaline phosphatase 84 -Denies abdominal pain or frequent ETOH use -May be 2/2 to above -Monitor Abscess -Left scapular region approx 3 cm long -Was draining at [place] when seen by surgery -No drainage now, dry and hard to touch -Culture grew out 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 Martines at [facility] 06/04/17 Code Status: Full code
[2017-06-02] MEDS ORDERED: methylPREDNISolone Sodium Succinate 40 MG/1 ML SDV IVPUSH SCH (21:00)
[2017-06-02] MEDS: Temazepam 15 MG Cap PO PRN (22:18)
[2017-06-03] MEDS: Clindamycin Phosphate 600 MG in Sodium Chloride 0.9% 100 ML IV SCH (03:59)
[2017-06-03] MEDS: Saccharomyces Boulardii (Probiotic) 250 MG Cap PO SCH (08:58)
[2017-06-03] MEDS ORDERED: Clindamycin HCl 150 MG Cap PO SCH (09:00)
[2017-06-03] MEDS ORDERED: predniSONE 10 MG Tab PO SCH (09:00)
--- NOTE | 2017-06-03 09:17 | PCM.DCSUM1 ---
Discharge Summary - Hospital Course HPI Initial Comments: Eleanor Swain is a 46 yo female who presents to our ED today (05/31/17) with fever , rash, body aches, and vomiting. She reportedly had a abscess on her left shoulder blade 1 week ago and went to the [facility] walk-in. She is an referred to surgery and a locum surgeon at [facility], Dr. Garrett, evaluated her this past Saturday. Patient states the wound was already draining so it was elected to allow to drain and she was started on Bactrim antibiotics. That afternoon she began having fever and body aches, with a temperature as high as 102.8. The night prior to coming to the ED she developed nausea and vomiting immediately after taking her antibiotic. She also reports a decreased appetite, dizziness, feeling "foggy," fevers, chills, and a very mild cough. She denies any sore throat, ear pain, abdominal pain, dysuria, or diarrhea. She reports a last night she did have some redness to her bilateral thighs. When she woke in the morning she had erythema and pruritus to the entire body. She reports a little bit of a headache the other day but nothing severe. Her last dose of antibiotic was the night of the . She did take some Tylenol PM the night before to help her sleep. On arrival to the ED temp was 30.7 Celsius. Pulse 104. Respirations 18. Blood pressure 111/69. Pulse ox 97%. Labs are obtained: WBCs are low at 3.79. Hemoglobin 12.3. Hematocrit 36.9. She is at the very bottom of normocytic at 76.4. Further 189,000. Neutrophils are low at 30%. There is 20% band neutrophils noted. Sodium is low 1:30. Potassium 3.8. Chloride is low at 95. Carbon dioxide 21. Anion gap is quite high at 17.8. BUN is 11. Creatinine is elevated at 1.2. EGFR is 49. Glucose is high at 129. Lactic acid 1.5. Calcium 8.2. Total bilirubin 0.2. AST is high at 157, ALT high at 106, alkaline phosphatase is 84. CRP is 3.8. Albumin is 3.2. UA is negative however 2+ protein, trace ketones, 3+ occult blood, and 40-50 RBCs are noted. In the ED she is given Tylenol, Benadryl, to 1 L boluses of lactated Ringer's, 125 mg IVP of Solu-Medrol, and she started on clindamycin 600 mg. 2 view chest x-rays obtained and nothing acute is identified. UDS was presumptive positive for marijuana. ETOH was 0.00. They obtained of the cultures from [facility] for her wound and as noted she rule out staph aureus sensitive to clindamycin, along with a few other meds. She was started on Bactrim double strength 1 tab twice a day for 10 days. This was started on Saturday. She was also instructed to follow-up with surgery on Saturday. In the ED she was noted to have pruritic and erythematous skin. She was not having any respiratory difficulty. She denies any past medical or surgical history. She is not a smoker. She is subsequently admitted to the medical floor on telemetry. She is a full code. She does not have a PCP currently however she would like to establish with Dr. Martines at [facility]. - Discharge Data Discharge Date: 06/03/17 (Admit date: 05/31/17) Discharge Disposition: Home, Self-Care 01 Condition: Good - Discharge Diagnosis/Problem(s) (1) Adverse reaction to antibiotic SNOMED Code(s): 821670902 ICD Code: T36.95XA - ADVERSE EFFECT OF UNSP SYSTEMIC ANTIBIOTIC, INIT ENCNTR Status: Acute Priority: High Current Visit: Yes Qualifiers: Encounter type: initial encounter Qualified Code(s): T36.95XA - Adverse effect of unspecified systemic antibiotic, initial encounter (2) Fever SNOMED Code(s): 556775390 ICD Code: R50.9 - FEVER, UNSPECIFIED Status: Acute Priority: High Current Visit: Yes Qualifiers: Fever type: unspecified Qualified Code(s): R50.9 - Fever, unspecified (3) Elevated transaminase level SNOMED Code(s): 242253332 ICD Code: R74.0 - NONSPEC ELEV OF LEVELS OF TRANSAMNS & LACTIC ACID DEHYDRGNSE Status: Acute Priority: Medium Current Visit: Yes (4) Dehydration SNOMED Code(s): 07821993 ICD Code: E86.0 - DEHYDRATION Status: Acute Priority: High Current Visit: Yes (5) Hypotension SNOMED Code(s): 79465807 ICD Code: I95.9 - HYPOTENSION, UNSPECIFIED Status: Acute Priority: High Current Visit: Yes Qualifiers: Hypotension type: unspecified hypotension type Qualified Code(s): I95.9 - Hypotension, unspecified (6) Hyponatremia SNOMED Code(s): 00575634 ICD Code: E87.1 - HYPO-OSMOLALITY AND HYPONATREMIA Status: Acute Priority : High Current Visit: Yes - Patient Summary/Data Hospital Course: I/P: Acute: Allergic reaction -Started on Bactrim last Saturday -Has since reported fever, generalized rash, body aches, vomiting, nausea, chills, dizziness -Bactrim half life 8-10 hours -Benadryl, steroid given in ED -Continue Solu-medrol, taper; change to prednisone 06/03/17 -IV fluids -Supportive care -Discontinue Bactrim -Rash improving by time she gets to floor -Other symptoms resolved by exam Dehydration-resolved -Reports poor oral intake over last several days 2/2 above -Anion gap 17.8 -Creatinine elevated (1.2) -Dry oral mucosa on exam -Push oral hydration -2L LR bolus given in ED -IV fluids as ordered Hypotension-resolved -2L fluid bolus given in ED -IV fluids as ordered -Monitor Hyponatremia-resolved -Likely 2/2 poor oral intake -IV fluids -Monitor Elevated transaminases -AST 157, ALT 106, Alkaline phosphatase 84 -Denies abdominal pain or frequent ETOH use -May be 2/2 to above -Monitor Abscess -Left scapular region approx 3 cm long -Was draining at [facility] when seen by surgery -No drainage now, dry and hard to touch -Culture grew out 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 Martines at [facility] 06/03/17 Code Status: Full code Overall Eleanor did very well and her symptoms continued to resolve. She was started on oral clindamycin as well as oral steroids and will be discharged home on these, as well as a probiotic. Her transaminases were elevated with us. Recommending follow-up with PCP in the future for this. She has not been in our system before so we have nothing to compare this visit to. Her abscess appears to be healing well. It is hard and not draining. She has no complaints. She has been ambulating frequently around the halls (19 laps). She will be discharged home today. She would like to establish with Dr. Martines, which is an excellent choice for her. We will attempt to make her an appointment prior to discharge. She has been instructed about the signs of anaphylactic reactions, as well as to avoid Bactrim and all "sulfa drugs" from here on out. - Patient Instructions Diet: Regular Diet as Tolerated Activity: As Tolerated Showering/Bathing: May Shower Notify Provider of: Fever, Increased Pain, Swelling and Redness, Nausea and/or Vomiting - Discharge Plan Prescriptions/Med Rec: Clindamycin HCl [Cleocin] 300 mg PO Q6H #15 cap predniSONE 10 mg PO ASDIRECTED 12 Days #24 tablet Saccharomyces Boulardii [Florastor] 500 mg PO DAILY #20 cap Home Medications: Home Meds Cholecalciferol (Vitamin D3) [Vitamin D3] 2,000 units PO DAILY 05/31/17 [History ] Multivitamin [Multivitamins] 1 each PO DAILY 05/31/17 [History] Clindamycin HCl [Cleocin] 300 mg PO Q6H #15 cap 06/03/17 [Rx] Saccharomyces Boulardii [Florastor] 500 mg PO DAILY #20 cap 06/03/17 [Rx] predniSONE 10 mg PO ASDIRECTED 12 Days #24 tablet 06/03/17 [Rx] Patient Handouts: Drug Rash, Drug Allergy, [id number] Forms: ED Department Discharge Referrals: Amie Ball MD [Physician] - PCP,None [Primary Care Provider] - - Discharge Summary/Plan Comment DC Time >30 min.: Yes (45 mins ) - General Info Admission Dx/Problem (Free Text: Admission Diagnosis/Problem Admission Diagnosis/Problem Allergic reaction to drug Subjective Update: In to see Eleanor. She is sitting on the edge of the bed. She is doing quite well. She has been walking frequently. She would like to go home. She denies any current concerns. No concerns noted by nursing. She will be discharged home today. Functional Status: Reports: Pain Controlled, Tolerating Diet, Ambulating, Urinating. Denies: New Symptoms - Review of Systems General: Reports: No Symptoms HEENT: Reports: No Symptoms Pulmonary: Reports: No Symptoms Cardiovascular: Reports: No Symptoms Gastrointestinal: Reports: No Symptoms Genitourinary: Reports: No Symptoms Musculoskeletal: Reports: No Symptoms Skin: Reports: No Symptoms Neurological: Reports: No Symptoms Psychiatric: Reports: No Symptoms - Patient Data Vitals - Most Recent: Last Vital Signs Temp 97.5 F 06/03/17 08:09 Pulse 68 06/03/17 08:09 Resp 20 06/03/17 08:09 BP 123/94 H 06/03/17 08:09 Pulse Ox 94 L 06/03/17 08:09 Weight - Most Recent: 211 lb I&O - Last 24 hours: Intake & Output 06/02/17 06/03/17 06/03/17 22:59 06:59 14:59 Intake Total 1030 1000 Output Total 1650 Balance 1030 -650 Lab Results - Last 24 hrs: Laboratory Results - last 24 hr 06/03/17 06/03/17 Range/Units 05:40 05:40 WBC 5.23 (3.98-10.04) K/mm3 RBC 4.09 (3.98-5.22) M/mm3 Hgb 10.2 L (11.2-15.7) gm/L Hct 32.0 L (34.1-44.9) % MCV 78.2 L (79.4-94.8) fl MCH 24.9 L (25.6-32.2) pg MCHC 31.9 L (32.2-35.5) g/dl RDW Std Deviation 42.4 (36.4-46.3) fL Plt Count 208 (182-369) K/mm3 MPV 10.9 (9.4-12.3) fl Neut % (Auto) 61.6 (34.0-71.1) % Lymph % (Auto) 29.4 (19.3-51.7) % [place] % (Auto) 7.5 (4.7-12.5) % Eos % (Auto) 0 L (0.7-5.8) Baso % (Auto) 0.2 (0.1-1.2) % Neut # (Auto) 3.22 (1.56-6.13) K/mm3 Lymph # (Auto) 1.54 (1.18-3.74) K/mm3 [place] # (Auto) 0.39 H (0.24-0.36) K/mm3 Eos # (Auto) 0.00 L (0.04-0.36) K/mm3 Baso # (Auto) 0.01 (0.01-0.08) K/mm3 Manual Slide Review Abnormal smear Sodium 139 (136-145) mEq/L Potassium 4.3 (3.5-5.1) mEq/L Chloride 106 (98-107) mEq/L Carbon Dioxide 23 (21-32) mEq/L Anion Gap 14.3 (5-15) BUN 14 (7-18) mg/dL Creatinine 0.7 (0.55-1.02) mg/dL Est Cr Clr Drug Dosing 92.29 mL/min Estimated GFR (MDRD) > 60 (>60) mL/min BUN/Creatinine Ratio 20.0 H (14-18) Glucose 176 H (74-106) mg/dL Calcium 8.5 (8.5-10.1) mg/dL Magnesium 2.1 (1.8-2.4) mg/dl C-Reactive Protein 0.6 (<1.0) mg/dL Med Orders - Current: Current Medications Acetaminophen (Tylenol) 650 mg PO Q4H PRN PRN Reason: Pain (Mild 1-3)/fever Hydrocodone Bitart/Acetaminophen ([place] 325-5 Mg) 1 tab PO Q4H PRN PRN Reason: Pain (moderate 4-6) Albuterol/Ipratropium (Duoneb 3.0-0.5 Mg/3 Ml) 3 ml NEB Q4H PRN PRN Reason: Shortness Of Breath/wheezing Clindamycin HCl (Cleocin) 300 mg PO Q6H MIKEY Last Admin: 06/03/17 08:58 Dose: 300 mg Hydralazine HCl (Apresoline) 10 mg IVPUSH Q6H PRN PRN Reason: Hypertension Metoprolol Tartrate (Lopressor) 5 mg IVPUSH Q4H PRN PRN Reason: Tachycardia Ondansetron HCl (Zofran Odt) 4 mg PO Q6H PRN PRN Reason: nausea, able to take PO Ondansetron HCl (Zofran) 4 mg IV Q6H PRN PRN Reason: Nausea/Vomiting Prednisone (Prednisone) 30 mg PO DAILY [facility] Last Admin: 06/03/17 08:58 Dose: 30 mg Saccharomyces Boulardii (Florastor) 500 mg PO DAILY [facility] Last Admin: 06/03/17 08:58 Dose: 500 mg Sodium Chloride (Saline Flush) 10 ml FLUSH ASDIRECTED PRN PRN Reason: Keep Vein Open Last Admin: 05/31/17 12:06 Dose: 10 ml Temazepam (Restoril) 15 mg PO BEDTIME PRN PRN Reason: Insomnia Last Admin: 06/02/17 22:18 Dose: 15 mg Discontinued Medications Acetaminophen (Tylenol) 975 mg PO NOW ONE Stop: 05/31/17 14:25 Last Admin: 05/31/17 14:40 Dose: 975 mg Diphenhydramine HCl (Benadryl) 50 mg IVPUSH ONETIME ONE Stop: 05/31/17 11:36 Last Admin: 05/31/17 12:05 Dose: 50 mg Lactated Ringer's (Ringers, Lactated) 1,000 mls @ 999 mls/hr IV .BOLUS ONE Stop: 05/31/17 12:34 Last Admin: 05/31/17 11:57 Dose: 999 mls/hr Lactated Ringer's (Ringers, Lactated) 1,000 mls @ 999 mls/hr IV .BOLUS ONE Stop: 05/31/17 13:56 Last Admin: 05/31/17 13:24 Dose: 999 mls/hr Clindamycin Phosphate 600 mg/ (Sodium Chloride) 104 mls @ 100 mls/hr IV ONETIME ONE Stop: 05/31/17 14:33 Last Admin: 05/31/17 13:51 Dose: 100 mls/hr Sodium Chloride (Normal Saline) 1,000 mls @ 100 mls/hr IV ASDIRECTED MIKEY Last Admin: 06/02/17 00:05 Dose: 100 mls/hr Clindamycin Phosphate 600 mg/ (Sodium Chloride) 104 mls @ 100 mls/hr IV Q8H MIKEY Clindamycin Phosphate 600 mg/ (Sodium Chloride) 104 mls @ 100 mls/hr IV Q6H [facility] Last Admin: 06/03/17 03:59 Dose: 100 mls/hr Magnesium Sulfate 2 gm/ Premix 50 mls @ 25 mls/hr IV ONETIME ONE Stop: 06/02/17 12:02 Last Admin: 06/02/17 11:25 Dose: 25 mls/hr Methylprednisolone Sodium Succinate (Solu-Medrol) 125 mg IVPUSH ONETIME ONE Stop: 05/31/17 11:36 Last Admin: 05/31/17 11:58 Dose: 125 mg Methylprednisolone Sodium Succinate (Solu-Medrol) 60 mg IVPUSH Q12H [facility] Last Admin: 05/31/17 21:57 Dose: 60 mg Methylprednisolone Sodium Succinate (Solu-Medrol) 60 mg IVPUSH Q12H [facility] Last Admin: 06/02/17 08:48 Dose: 60 mg Methylprednisolone Sodium Succinate (Solu-Medrol) 40 mg IVPUSH Q12H [facility] Last Admin: 06/02/17 20:26 Dose: 40 mg Pneumococcal Polyvalent Vaccine (Pneumovax 23) 0.5 ml IM .ONCE ONE Stop: 05/31/17 15:29 - Exam Quality Assessment: Reports: DVT Prophylaxis General: Reports: Alert, Oriented, Cooperative HEENT: Reports: Pupils Equal, Pupils Reactive, EOMI, Mucous Membr. Moist/[place] Neck: Reports: Supple, Trachea Midline, No JVD Lungs: Reports: Clear to Auscultation, Normal Respiratory Effort Cardiovascular: Reports: Regular Rate, Regular Rhythm GI/Abdominal Exam: Normal Bowel Sounds, Soft, Non-Tender, No Organomegaly, No Distention, No Abnormal Bruit, No Mass, Pelvis Stable (Female) Exam: Deferred Rectal (Female) Exam: Deferred Back Exam: Reports: Normal Inspection, Full Range of Motion Extremities: Normal Inspection, Normal Range of Motion, Non-Tender, No Pedal Edema, Normal Capillary Refill Skin: Reports: Warm, Dry, Intact Wound/Incisions: Reports: Healing Well, No Drainage, Erythema Improving Neurological: Reports: No New Focal Deficit Psy/Mental Status: Reports: Alert, Normal Affect, Normal Mood *Q Meaningful Use (DIS) - VTE *Q VTE Criteria *Q: - Stroke *Q Stroke Criteria *Q: - AMI *Q AMI Criteria *Q:
[2017-06-06] MEDS ORDERED: predniSONE 20 MG Tab PO SCH (09:00)
[2017-06-09] MEDS ORDERED: predniSONE 10 MG Tab PO SCH (09:00)
[2017-06-12] MEDS ORDERED: predniSONE 5 MG Tab PO SCH (09:00)
== END 2017-06-03 11:19 | disposition home or self-care (01) | DRG 385 ==
LOC: JD.ED 10:54 → JD.MS 14:41
PROVIDERS: ADMIT Internal Medicine Cardiovascular Disease; ATTEND Internal Medicine Cardiovascular Disease
DX: L27.0 Generalized skin eruption due to drugs and medicaments taken internally (principal); T37.0X5A Adverse effect of sulfonamides, initial encounter; M86.8X1 Other osteomyelitis, shoulder; R50.9 Fever, unspecified; R74.0 Nonspecific elevation of levels of transaminase and lactic acid dehydrogenase [LDH]; E86.0 Dehydration; I95.9 Hypotension, unspecified; E87.1 Hypo-osmolality and hyponatremia; Z88.2 Allergy status to sulfonamides; Z91.040 Latex allergy status
CPT/HCPCS: 36415; 71046; 71046-26; 80048; 80053; 80306; 81001; 83605; 83735; 85025; 86140; 87040; 87081; 87430; 96361; 96365; 96375; 99221; 99231; 99232; 99239; 99283; 99285-25; A9270-GY; G0480; J1200; J2920; J2930; J3475; J7030; J7040; J7050; J7120

== ENCOUNTER 2017-08-13 06:47 | Day surgery (SDC) | payer BC ==
[~2017-08-13 06:47] MED LIST: Dexamethasone 4 MG/ML 5 ML MDV ONE; HYDROmorphone 0.5 MG/0.5 ML Syringe ONE; Ketorolac 30 MG/ML SDV ONE; Lidocaine 1%/Sod Bicarbonate in NS 8.4% 1 ML Syringe IDERM PRN; Ondansetron 4 MG/2 ML SDV ONE; Rocuronium 50 MG/5 ML Vial ONE; Sodium Chloride 0.9% 10 ML Syringe FLUSH PRN
[2017-08-13] MEDS ORDERED: Ketamine 500 mg/10 ML MDV ONE (06:48)
[2017-08-13] MEDS ORDERED: Propofol 200 MG/20 ML SDV ONE (06:48)
[2017-08-13] MEDS ORDERED: Midazolam 1 MG/ML 2 ML SDV ONE (06:48)
[2017-08-13] MEDS ORDERED: fentaNYL 250 MCG/5 ML SDV ONE (06:48)
[2017-08-13] MEDS ORDERED: ceFAZolin 1 GM Vial ONE (06:49)
[2017-08-13] MEDS ORDERED: Bupivacaine 0.5% 30 ML SDV ONE (07:01)
--- NOTE | 2017-08-13 07:09 | PCM.PREANE ---
Preanesthetic Assessment - Anesthesia/Transfusion/Family Hx Anesthesia History: Prior Anesthesia Without Reaction Family History of Anesthesia Reaction: No Transfusion History: No Prior Transfusion(s) - Review of Systems General: No Symptoms, Other (anemia, obesity with BMI 35, ) Pulmonary: Other (quit smoking 2 years ago) Cardiovascular: No Symptoms Gastrointestinal: No Symptoms Neurological: No Symptoms Other: Reports: None - Physical Assessment NPO Status Date: 08/12/17 NPO Status Time: 21:30 Pulse: 65 O2 Sat by Pulse Oximetry: 97 Respiratory Rate: 16 Blood Pressure: 129/74 Weight: 90.3 kg ASA Class: 2 Mental Status: Alert & Oriented x3 Airway Class: Mallampati = 2 Dentition: Reports: Broken Tooth/Teeth (left front tooth small chip) Thyro-Mental Finger Breadths: 3 Mouth Opening Finger Breadths: 3 ROM/Head Extension: Full Lungs: Clear to Auscultation, Normal Respiratory Effort Cardiovascular: Regular Rate, Regular Rhythm - Lab Values: Laboratory Last Values WBC 10.07 K/mm3 (3.98-10.04) H 08/12/17 12:14 RBC 5.40 M/mm3 (3.98-5.22) H 08/12/17 12:14 Hgb 13.7 gm/L (11.2-15.7) 08/12/17 12:14 Hct 42.3 % (34.1-44.9) 08/12/17 12:14 MCV 78.3 fl (79.4-94.8) L 08/12/17 12:14 MCH 25.4 pg (25.6-32.2) L 08/12/17 12:14 MCHC 32.4 g/dl (32.2-35.5) 08/12/17 12:14 RDW Std Deviation 40.7 fL (36.4-46.3) 08/12/17 12:14 Plt Count 342 K/mm3 (182-369) 08/12/17 12:14 MPV 10.9 fl (9.4-12.3) 08/12/17 12:14 Neut % (Auto) 59.1 % (34.0-71.1) 08/12/17 12:14 Lymph % (Auto) 35.1 % (19.3-51.7) 08/12/17 12:14 [place] % (Auto) 3.6 % (4.7-12.5) L 08/12/17 12:14 Eos % (Auto) 1.5 (0.7-5.8) 08/12/17 12:14 Baso % (Auto) 0.3 % (0.1-1.2) 08/12/17 12:14 Neut # (Auto) 5.96 K/mm3 (1.56-6.13) 08/12/17 12:14 Lymph # (Auto) 3.53 K/mm3 (1.18-3.74) 08/12/17 12:14 [place] # (Auto) 0.36 K/mm3 (0.24-0.36) 08/12/17 12:14 Eos # (Auto) 0.15 K/mm3 (0.04-0.36) 08/12/17 12:14 Baso # (Auto) 0.03 K/mm3 (0.01-0.08) 08/12/17 12:14 Creatinine 0.9 mg/dL (0.55-1.02) 08/12/17 12:14 Est Cr Clr Drug Dosing TNP 08/12/17 12:14 Estimated GFR (MDRD) > 60 mL/min (>60) 08/12/17 12:14 Urine HCG, Qual Negative (NEGATIVE) 08/12/17 12:14 Blood Type B POSITIVE 08/12/17 12:14 Gel Antibody Screen Negative 08/12/17 12:14 - Allergies Allergies/Adverse Reactions: Allergies Allergy/AdvReac Type Severity Reaction Status Date / Time latex Allergy Rash Verified 08/12/17 10:01 Sulfa (Sulfonamide Allergy Rash Verified 08/12/17 10:01 Antibiotics) sulfamethoxazole Allergy Rash Verified 08/12/17 10:01 [From Bactrim] trimethoprim [From Bactrim] Allergy Rash Verified 08/12/17 10:01 - Blood Blood Available: No Product(s) Available: None - Anesthesia Plan Pre-Op Medication Ordered: None - Acknowledgements Anesthesia Type Planned: General Anesthesia Pt an Appropriate Candidate for the Planned Anesthesia: Yes Alternatives and Risks of Anesthesia Discussed w Pt/Guardian: Yes Pt/Guardian Understands and Agrees with Anesthesia Plan: Yes PreAnesthesia Questionnaire - Past Health History Medical/Surgical History: Denies Medical/Surgical History HEENT History: Reports: Allergic Rhinitis Other HEENT History: glasses Cardiovascular History: Reports: None Respiratory History: Reports: None Gastrointestinal History: Reports: None Genitourinary History: Reports: None [employer] History: Reports: Other (See Below) Other OB/BYN History: Menorrhagia Musculoskeletal History: Reports: Other (See Below) Other Musculoskeletal History: Bulging disk Neurological History: Reports: None Psychiatric History: Reports: None Endocrine/Metabolic History: Reports: Obesity/BMI 30+, Vitamin D Deficiency Hematologic History: Reports: Anemia Immunologic History: Reports: None Oncologic (Cancer) History: Reports: None Dermatologic History: Reports: Other (See Below) Other Dermatologic History: Abscess of left shoulder - Infectious Disease History Other Infectious Disease History: Staph Aureus - Past Surgical History Head Surgeries/Procedures: Reports: None HEENT Surgical History: Reports: None Cardiovascular Surgical History: Reports: None Respiratory Surgical History: Reports: None GI Surgical History: Reports: Appendectomy Female Surgical History: Reports: Section Endocrine Surgical History: Reports: None Neurological Surgical History: Reports: Lumbar Spine Musculoskeletal Surgical History: Reports: Other (See Below) Other Musculoskeletal Surgeries/Procedures:: Lumbar surgery Oncologic Surgical History: Reports: None Dermatological Surgical History: Reports: None - SUBSTANCE USE Smoking Status *Q: Former Smoker Second Hand Smoke Exposure: No Recreational Drug Use History: No - HOME MEDS Home Medications: Home Meds Multivitamin [Multivitamins] 1 each PO DAILY 05/31/17 [History] Cholecalciferol (Vitamin D3) [Vitamin D] 50,000 unit PO SUWE 08/12/17 [History] - CURRENT (IN HOUSE) MEDS Current Meds: Current Medications Lactated Ringer's (Ringers, Lactated) 1,000 mls @ 125 mls/hr IV ASDIRECTED MIKEY Lidocaine/Sodium Bicarbonate (Buffered Lidocaine 1% In Ns 8.4%) 0.25 ml IDERM ONETIME PRN PRN Reason: Prior to IV Start Sodium Chloride (Saline Flush) 10 ml FLUSH ASDIRECTED PRN PRN Reason: Keep Vein Open Discontinued Medications Cefazolin Sodium (Ancef) Confirm Administered Dose 2 gm .ROUTE .STK-MED ONE Stop: 08/13/17 06:50 Dexamethasone (Dexamethasone) Confirm Administered Dose 20 mg .ROUTE .STK-MED ONE Stop: 08/13/17 06:48 Fentanyl (Sublimaze) Confirm Administered Dose 250 mcg .ROUTE .STK-MED ONE Stop: 08/13/17 06:49 Hydromorphone HCl (Dilaudid) Confirm Administered Dose 0.5 mg .ROUTE .STK-MED ONE Stop: 08/13/17 06:48 Ketamine HCl (Ketalar) Confirm Administered Dose 500 mg .ROUTE .STK-MED ONE Stop: 08/13/17 06:49 Ketorolac Tromethamine (Toradol) Confirm Administered Dose 30 mg .ROUTE .STK- MED ONE Stop: 08/13/17 06:48 Midazolam HCl (Versed 1 Mg/Ml) Confirm Administered Dose 2 mg .ROUTE .STK-MED ONE Stop: 08/13/17 06:49 Ondansetron HCl (Zofran) Confirm Administered Dose 4 mg .ROUTE .STK-MED ONE Stop: 08/13/17 06:48 Propofol (Diprivan 20 Ml) Confirm Administered Dose 200 mg .ROUTE .STK-MED ONE Stop: 08/13/17 06:49 Rocuronium [place] (Zemuron) Confirm Administered Dose 50 mg .ROUTE .STK-MED ONE Stop: 08/13/17 06:48
[2017-08-13] MEDS: Lactated Ringers 1,000 ML IV SCH ×2 (07:10→11:17)
[2017-08-13] MEDS ORDERED: HYDROmorphone 0.5 MG/0.5 ML Syringe ONE ×2 (08:37→09:07)
[2017-08-13] MEDS ORDERED: fentaNYL 100 MCG/2 ML SDV ONE (09:09)
[2017-08-13] MEDS: Sodium Chloride 0.9% 50 ML SDV ONE ×2 (09:12→09:21)
[2017-08-13] MEDS: Lidocaine 1% with EPINEPHrine 1:100,000 20 ML MDV ONE ×2 (09:12→09:21)
[2017-08-13] MEDS ORDERED: Lactated Ringers 1,000 ML ONE ×2 (09:54)
[2017-08-13] MEDS ORDERED: Acetaminophen/oxyCODONE 325-5 MG Tab PO PRN (10:27)
[2017-08-13] MEDS ORDERED: Ondansetron 4 MG/2 ML SDV IVPUSH PRN ×2 (10:27→10:30)
--- NOTE | 2017-08-13 10:29 | PCM.POSTAN ---
POST ANESTHESIA ASSESSMENT - MENTAL STATUS Mental Status: Alert, Oriented - VITAL SIGNS Pulse Rate: 88 SaO2: 97 Resp Rate: 16 Blood Pressure: 120/59 Temperature: 37 C - RESPIRATORY Respiratory Status: Respiratory Rate WNL, Airway Patent, O2 Saturation Stable, Supplemental Oxygen - CARDIOVASCULAR CV Status: Pulse Rate WNL, Blood Pressure Stable - GASTROINTESTINAL GI Status: No Symptoms - PAIN Pain Score: 0 - POST OP HYDRATION Hydration Status: Adequate & Stable
[2017-08-13] MEDS ORDERED: Ketorolac 30 MG/ML SDV IVPUSH SCH (10:30)
[2017-08-13] MEDS ORDERED: HYDROmorphone 0.5 MG/0.5 ML Syringe IVPUSH PRN (10:30)
[2017-08-13] MEDS ORDERED: fentaNYL 100 MCG/2 ML SDV IVPUSH PRN (10:30)
--- NOTE | 2017-08-13 10:35 | PCM.OPNOTE ---
- General Post-Op/Procedure Note Date of Surgery/Procedure: 08/13/17 Operative Procedure(s): Laparoscopically-assisted vaginal hysterectomy with left salpingectomy and partial right salpingectomy, lysis of pelvic adhesions Findings: Patient of uterus enlarged with at least 2 uterine fibroids. Oxman be 8 weeks size. The anterior cul-de-sac was adhered secondary to previous section. The right fallopian tube was intimately attached to the ovary and to the posterior broad ligament at its distal fimbriated end. Left descending colon and sigmoid colon was adhered to the left pelvic sidewall. There were omental adhesions to the periumbilical area. The right and left ovaries were functional and normal in appearance and are left in place. There is a left paratubal cyst. Appendix was surgically absent. Liver edges were unremarkable. Posterior cul-de-sac was unremarkable. Pre Op Diagnosis: 1. Dysmenorrhea. 2. Menorrhagia Post-Op Diagnosis: Same with pelvic adhesions Anesthesia Technique: General ET Tube Other Anesthesia Type: Marcaine 0.5% locally approximately 15 mL used Primary Surgeon: Osvaldo Baron Secondary Surgeon: Elysia Gomez Reason Senior Sustainability Consultant Was Necessary: Retraction, assistance, patient safety, quality of care Role of Senior Sustainability Consultant: Retraction, assistance Fluid Replacement, Intraop: 2,900 Output, Urine Amount: 325 EBL in mLs: 400 Drain/Tube Comments:: Indwelling bladder catheter during surgery only. Complications: None Condition: Good Free Text/Narrative:: Surgery duration: 96 minutes The patient was taken to the operating room placed in supine position on the operating table. She received 2 g of Ancef preoperatively for infection prophylaxis. She had signed consent previously. After adequate anesthesia patient was placed in a dorsal lithotomy position. It should be noted she had sequential compression stockings in place for DVT prophylaxis. A uterine manipulator was placed as was an latex free indwelling bladder catheter. This was done after adequate prepping and draping. The patient was placed in supine position and four laparoscopic port sites were developed. Marcaine 0.5% approximately 3-5 mL was injected at each site. Varies needle was placed and pneumoperitoneum was achieved with 3 L of CO2. Infraumbilical, suprapubic and 2 lateral port sites were developed. Under laparoscopic guidance the upper portion of the hysterectomy was performed. There were some mild omental adhesions at the periumbilical area and these were taken down using blunt dissection. The left descending colon and sigmoid colon were somewhat adhered to the left pelvic sidewall and these were taken down also using blunt dissection. There are light, wispy adhesions. The right fallopian tube was then elevated and the very distal end of the fallopian tube was intimately attached to the ovary. Because of this and the Chris to maintain her ovaries without compromise the very distal portion of fallopian tube was left in place. The remainder of the fallopian tube was removed using an Enseal vessel closure system. The meso-salpinx was taken down in a routine fashion. The round ligament was taken down to the broad ligament. At this time attention was turned to the left side and the left infundibulopelvic ligament and the triple ligament were then taken down in a similar fashion. Broad ligament was taken down to the area of the uterine vasculature. Uterine vasculature was developed in the usual fashion using the Enseal cautery system. Both uterine arteries were identified and developed. Vaginal approach was then undertaken. The patient was placed in the dorsal lithotomy position and a weighted speculum was placed in the vagina. The cervix was injected with lidocaine quarter percent with epinephrine 20 mL total. A full circumference incision was made through the epithelium around the cervix. Posterior cul-de-sac was entered without problems. The left uterosacral ligament and then the right uterosacral were taken down using the Enseal vessel closure system. The cardinal ligament and what remained of the uterine vascular vessels and cervical branches of the vessels were managed with the Enseal vessel closure system on each side. Anterior cul-de-sac was then entered and the remaining portion of broad ligament on the right side and a small portion of broad ligament remaining on the left side were then developed in the usual fashion. Uterus was then removed. At this point the uterus was completely removed and sent as specimen. The vaginal cuff was then run with a locked running suture of 0 Monocryl from the 2 o'clock position to the 10 o'clock position. The vagina was closed with a running locked suture of 0 Monocryl. Hemostasis was confirmed this time and no bleeding was noted. Laparoscopy was then performed to ensure hemostasis. Pneumoperitoneum was reestablished and the laparoscope was placed. A small superficial lesion was noted in the area of the right ovary and this was cauterized. The pelvis was then found to be hemostatically intact. There was no evidence of any bowel adhesion to the vaginal cuff area noted. The sleeves were removed under direct visualization and the upper sleeve was removed after reversal of the pneumoperitoneum. Each of these sites were closed with a single interrupted suture of 3-0 Monocryl. They were further approximated with Dermabond skin glue. At this point the patient was awakened from general endotracheal anesthesia. The Moreira catheter had been removed by this time. She is discharged from the operating room in good condition.
--- NOTE | 2017-08-13 12:06 | PCM48HPAN ---
Post Anesthesia Note - EVALUATION WITHIN 48HRS OF ANESTHETIC Vital Signs in Normal Range: Yes Patient Participated in Evaluation: Yes Respiratory Function Stable: Yes Airway Patent: Yes Cardiovascular Function Stable: Yes Hydration Status Stable: Yes Pain Control Satisfactory: Yes Nausea and Vomiting Control Satisfactory: Yes Mental Status Recovered: Yes Pulse Rate: 70 Resp Rate: 16 Temperature: 37 C Blood Pressure: 115/69
== END 2017-08-13 13:45 | disposition home or self-care (01) ==
LOC: JD.SDS 06:47
PROVIDERS: ATTEND Obstetrics & Gynecology
DX: D25.9 Leiomyoma of uterus, unspecified (principal); N80.0 Endometriosis of uterus; N83.8 Other noninflammatory disorders of ovary, fallopian tube and broad ligament; N73.6 Female pelvic peritoneal adhesions (postinfective); E66.9 Obesity, unspecified; Z68.35 Body mass index [BMI] 35.0-35.9, adult; E55.9 Vitamin D deficiency, unspecified; Z87.891 Personal history of nicotine dependence; Z79.899 Other long term (current) drug therapy; Z88.1 Allergy status to other antibiotic agents; Z88.2 Allergy status to sulfonamides; Z91.040 Latex allergy status
CPT/HCPCS: 36415; 58552; 81025; 82565; 85025; 86850; 86900; 86901; J0690; J1100; J1170; J1885; J2250; J2405; J3010; J7120; J2704